=== PATIENT | male | born 1960 | race Caucasian/White ===

== ENCOUNTER 2016-09-20 15:47 | Emergency (ER) | payer OTHER ==
--- NOTE | 2016-09-20 15:57 | EDPHY ---
H & P Stated Complaint: r lumbar /sciatic and r leg pain and numbness for 1 month - Personal History Current Tetanus/Diphtheria Vaccine: Yes Tetanus Vaccine Date: 2006 - Medical/Surgical History Hx Asthma: No Hx Chronic Respiratory Disease: No Hx Diabetes: No Hx Cardiac Disease: No Hx Renal Disease: No Hx Cirrhosis: No Hx Alcoholism: No Hx HIV/AIDS: No Hx Splenectomy or Spleen Trauma: No Other PMH: HTN, Pelvic Fx, tib fx, chronic pain, NICK - Social History Smoking Status: Never smoked Time Seen by Provider: 09/20/16 15:57 Constitutional: Initial Vital Signs Temperature (C) 36.7 C 09/20/16 15:52 Heart Rate 106 H 09/20/16 15:52 Respiratory Rate 20 09/20/16 15:52 Blood Pressure 125/75 H 09/20/16 15:52 O2 Sat (%) 93 09/20/16 15:52 O2 Delivery Mode Room Air Allergies/Adverse Reactions: Penicillins Allergy (Intermediate, Verified 09/20/16 15:50) Hives Home Medications: Medication Instructions Recorded Cyclobenzaprine 10/22/15 Gabapentin 10/22/15 Testosterone IM 10/22/15 traMADOL 10/22/15 methylPREDNISolone [Medrol Dose 4 mg PO DAILY #1 each 09/20/16 Russell] Medical Decision Making - Diagnostics Imaging Results: Imaging Impressions Lumbar Spine MRI 09/20/16 16:12 Impression: There is a 4 x 7 x 9 mm synovial cyst seen along the medial portion of the right L4-L5 facet joint, as well as left lateral ligamentum flavum thickening, features resulting in a severe canal stenosis. There is also accompanying facet hypertrophy and some broad-based circumferential disk bulging at this level. Findings were discussed with Rowan Moses MD at 21:10, on 09/20/2016. ED Course/Re-evaluation: CHIEF COMPLAINT: Lower back pain, right leg numbness. HISTORY OF PRESENT ILLNESS: The patient is a 56-year-old male who presents with right lower back pain that began a month ago and has been worsening since then. Today when he woke up the pain was severe and his leg has been going numb. He denies weakness. The pain is worsened with movement. He had bilateral kidney ultrasounds today with his PCP Dr. Thapa that were negative. His creatinine was noted to be high. REVIEW OF SYSTEMS: A 10 point review of systems was performed and is negative with the exception of the elements mentioned in the history of present illness. PHYSICAL EXAM: HR, BP, O2 Sat, RR. Temp noted General Appearance: Alert, well hydrated, appropriate, and non-toxic appearing. Head: Atraumatic without scalp tenderness or obvious injury Eyes: Pupils equal, round, reactive to light and accommodation, EOMI, no trauma , no injection. Ears: Clear bilaterally, no perforation, normal landmarks Nose: Atraumatic, no rhinorrhea, clear. Throat: There is no erythema or exudates, no lesions, normal tonsils, mucus membranes moist. Neck: Supple, 2+ carotid upstroke, nontender, no lymphadenopathy. Respiratory: No retractions, no distress, no wheezes, and no accessory muscle use. Lungs are clear to auscultation bilaterally. Cardiovascular: Regular rate and rhythm, no murmurs, rubs, or gallops. Bilateral carotid, radial, dorsalis pedis, and posterior tibial pulses intact. Good capillary refill all extremities. Gastrointestinal: Abdomen is soft, nontender, non-distended, no masses, no rebound, no guarding, no peritoneal signs. Musculoskeletal: Normal active ROM of all extremities, atraumatic. Neurological: Alert, appropriate, and interactive. The patient has normal DTRs and non-focal cranial nerves, motor, sensory, and cerebellar exam. Skin: No rashes, good turgor, no nodules on palpation. Past medical history: Hypertension, chronic pain, NICK Past surgical history: Right tibial fracture repair, pelvic fracture repair. Family history: N/A. Social history: Here alone. DIAGNOSTICS/PROCEDURES/CRITICAL CARE TIME: Study: MRI of the: Lumbar spine. Indication: Neurologic Results: See Image Results section for official report. The study was read by the radiologist. I viewed the images myself on the PACS system. DIFFERENTIAL DIAGNOSIS: The differential diagnosis for the patient's back pain included but was not limited to musculo-skeletal pain, epidural abscess, herniated disk, spinal fracture, and intra-abdominal causes including urinary system. MEDICAL DECISION MAKIN-year-old male presents with right lower back pain and numbness in his right leg. The numbness ends skilled nursing down his right calf. These symptoms have been present for a month but worsened significantly this morning. He has a normal motor exam. He does have a large amount of hardware in his pelvis and lower back. I consulted with Dr. Mchugh who reports that an MRI will still be valuable. I have ordered a lumbar spine MRI without contrast. 2100: Patient signed out to Dr. Anders. Awaiting results of MRI. (Dirk Whitt) I assumed care of this patient at 9:00 p.m.. We are awaiting MRI results. MRI scan of the lumbar spine was obtained. I viewed the images independently on the PACS system. I discussed the results of the study with the radiologist. Impression: 4 x 7 x 9 mm synovial cyst along the medial portion of the right L4-L5 facet joint as well as left lateral ligamentum flavum thickening resulting in severe canal stenosis. Please see the full radiology report. I discussed the patient's MRI with Viv Kim, from Neurosurgery. Patient will have a urgent follow-up visit and Neurosurgery in either or Monday of this week. I discussed the results of the MRI with the patient as well as his strip catcher who is a nurse. Patient expressed concern to me about ongoing sinus tachycardia as well as hypertension. He has been seen by his primary care physician, Dr. Thapa, recently. Evaluation thus far has demonstrated a kidney stone of the right kidney on ultrasound as well as worsening renal insufficiency with a creatinine of 1.5. Patient is noted to be hypertensive at 146/117. He has a heart rate of 114. He is afebrile. CBC, Chem 7, TSH were ordered. Patient would prefer to be discharged after the labs were drawn with close follow-up tomorrow with Dr. Thapa. He was discharged with a Medrol Dosepak. He tells me he has tramadol at home and would prefer not to have narcotics. (Rowan Moses) Differential Diagnosis: After history was obtained and physical exam performed, the differential for back pain was considered including but not limited to muscular pain, herniated disc, structural lumbar spine compression, spinal stenosis, spine fracture, intra-abdominal causes, and urinary tract infection. (Rowan Moses) - Data Points Laboratory Results: 09/20/16 09/20/16 21:58 21:58 WBC Pending RBC Pending Hgb Pending Hct Pending MCV Pending MCH Pending MCHC Pending RDW Pending Plt Count Pending MPV Pending Neut % (Auto) Pending Lymph % (Auto) Pending [place] % (Auto) Pending Eos % (Auto) Pending Baso % (Auto) Pending Nucleat RBC Rel Count Pending Absolute Neuts (auto) Pending Absolute Lymphs (auto) Pending Absolute Monos (auto) Pending Absolute Eos (auto) Pending Absolute Basos (auto) Pending Absolute Nucleated RBC Pending Immature Gran % Pending Immature Gran # Pending Sodium Pending Potassium Pending Chloride Pending Carbon Dioxide Pending Anion Gap Pending BUN Pending Creatinine Pending Estimated GFR Pending Glucose Pending Calcium Pending TSH Pending Medications Given: Discontinued Medications Prednisone (Prednisone) 60 mg PO EDNOW ONE Stop: 09/20/16 16:13 Last Admin: 09/20/16 16:55 Dose: 60 mg Departure - Departure Disposition: Home, Routine, Self-Care Clinical Impression: Lumbar radiculopathy Lumbar pain Qualifiers: Chronicity: acute Back pain laterality: right Sciatica presence: with sciatica Sciatica laterality: sciatica of right side Qualified Code(s): M54.41 - Lumbago with sciatica, right side Condition: Good Instructions: Acute Low Back Pain (ED), Lumbar Radiculopathy (ED) Additional Instructions: Follow up with Dr. Kim, neurosurgery, this week. Your case has been discussed with her. You should be able to make an appointment on or Monday. Their office will be contacting you. If you do not hear from them sometime tomorrow, please call and make an appointment. Please take the Medrol Dosepak as directed. Please follow up with Dr. Thapa for reports regarding the laboratory evaluation performed this evening. Return for any serious worsening of condition, including increasing pain, weakness in the lower extremity, worsening numbness or tingling into the leg, urinary difficulties. Referrals: Rupert Thapa MD [Primary Care Provider] - As per Instructions Viv Kim DO [Doctor of Osteopathy] - As per Instructions (Call for an appointment this week.) Prescriptions: methylPREDNISolone [Medrol Dose Russell] 4 mg PO DAILY #1 each Report Scribed for: Dirk Whitt Report Scribed by: Linwood Schwab Date of Report: 09/20/16 Time of Report: 16:04
[2016-09-20] MEDS ORDERED: predniSONE 20 MG TAB PO ONE (16:12)
[2016-09-20] MEDS ORDERED: DILTIAZEM 25 MG/5 ML VIAL IVP ONE (17:30)
[2016-09-20 21:54] VITALS: BP 146/117; PULSE 111; RESP 20; TEMP 98.2; O2SAT 94
[2016-09-20 22:06] LABS: % IMMATURE GRANULYOCYTES 0.6 % (0.0-1.1); ABSOLUTE IMMATURE GRANULOCYTES 0.07 10^3/uL (0.00-0.10); ADD DIFF? NO; ADD MORPH? NO; ADD SCAN? NO; ATYPICAL LYMPHOCYTE FLAG 0 (0-99); FRAGMENT RBC FLAG 0 (0-99); HEMATOCRIT 53.5 % (40.0-51.0); LEFT SHIFT FLG 0 (0-99); LIPEMIA HEMOLYSIS FLAG 80 (0-99); MEAN CELL HEMOGLOBIN 28.6 pg (27.9-34.1); MEAN CELL HEMOGLOBIN CONCENTR. 33.6 g/dL (32.4-36.7); MEAN CELL VOLUME 84.9 fL (81.5-99.8); MEAN PLATELET VOLUME 10.3 fL (8.7-11.7); PLATELET CLUMPS FLAG 0 (0-99); PLATELET COUNT 242 10^3/uL (150-400); RED CELL DISTRIBUTION WIDTH 19.7 % (11.5-15.2)
[2016-09-20 22:19] LABS: ANION GAP 12 mEq/L (8-16); CALCIUM 9.7 mg/dL (8.5-10.4); CARBON DIOXIDE 22 mEq/l (22-31); CHLORIDE 105 mEq/L (97-110); CREATININE 1.6 mg/dL (0.7-1.3); GLOMERULAR FILTRATION RATE 45; GLUCOSE 114 mg/dL (70-100); SODIUM 139 mEq/L (134-144)
== END 2016-09-20 22:31 | disposition home or self-care (01) ==
DX: M54.16 Radiculopathy, lumbar region (principal); M54.41 Lumbago with sciatica, right side; I10 Essential (primary) hypertension

== ENCOUNTER → 2016-09-20 | Outpatient (CLI) | payer OTHER | LOC: CIMAGING 10:26 | PROVIDERS: ATTEND Internal Medicine | DX: R10.9 Unspecified abdominal pain (principal); R94.4 Abnormal results of kidney function studies | CPT/HCPCS: 76770-PO ==

== ENCOUNTER 2017-01-15 10:28 | Emergency (ER) | payer OTHER ==
[2017-01-15 10:39] VITALS: TEMP 97.7
--- NOTE | 2017-01-15 11:18 | EDPHY ---
H & P Time Seen by Provider: 01/15/17 11:15 HPI/ROS: HPI: Mr. Olivier Priec is a 56-year-old male who presents with Chief Complaint: Rash on right shoulder Location: right shoulder/upper back Quality: Rash Duration: 3 days Signs and Symptoms: Positive pruritus, no headache, no malaise, no photophobia , no paresthesia, no pain, no vision changes, no eye redness Timing: Sudden, worsening Severity: Moderate Context: Patient noted that he had some itchiness on his right shoulder upper back approximately 3 days ago; then noticed rash 2 days ago. also requesting some Silvadene cream. Modifying Factors: Takes Neurontin, Nucenta and Ultram Comment: ROS: Eyes: No blurred vision Respiratory: No shortness of breath, no cough Cardiovascular: No chest pain Gastrointestinal: No nausea, no vomiting no diarrhea Genitourinary: No dysuria Extremities: No myalgias Neurologic: No weakness, no numbness Skin: + rashes Hematologic: No bruising, no bleeding MEDICAL/SURGICAL HISTORY: Hypertension, pelvic fracture, tibial fracture with malunion, chronic pain, obstructive sleep apnea Social History: . Retired from [employer]. Smoking Status: Never smoked Physical Exam: CONSTITUTIONAL: Well-appearing adult white male, awake and alert, no obvious distress HEENT: Atraumatic and normocephalic, PERRL, EOMI. Tympanic membranes clear. . Oropharynx clear, no exudate and moist pink mucosa. Airway patent. No lymphadenopathy. No meningismus. Cardiovascular: Normal S1/S2, regular rate, regular rhythm, without murmur rub or gallop. PULMONARY/CHEST: Symmetrical and nontender. Clear to auscultation bilaterally Good air movement. No accessory muscle usage. ABDOMEN: Soft, nondistended, nontender, no rebound, no guarding, no peritoneal signs, no masses or organomegaly. No CVAT. EXTREMITIES: 2/2 pulses, no deformities, no clubbing, no cyanosis or edema. NEUROLOGICAL: no focal neuro deficits. GCS 15. SKIN: Warm and dry, macular papular rash in the T3 through T4 dermatomal distribution not passing over midline; no vesicles seen. no rash. Good capillary refill. Constitutional: Initial Vital Signs Temperature (C) 36.5 C 01/15/17 10:35 Heart Rate 95 08/27/17 10:35 Respiratory Rate 18 01/15/17 10:35 Blood Pressure 164/109 H 01/15/17 10:35 O2 Sat (%) 93 01/15/17 10:35 O2 Delivery Mode Room Air Allergies/Adverse Reactions: Penicillins Allergy (Intermediate, Verified 01/15/17 10:35) Hives Home Medications: Medication Instructions Recorded Cyclobenzaprine 10/22/15 Gabapentin 10/22/15 Testosterone IM 10/22/15 traMADOL 10/22/15 Acyclovir 800 mg PO 5XD #35 tab 01/15/17 Nucynta 01/15/17 Silver Sulfadiazine [Silvadene] 50 gm TP TID PRN #0 cream..g. 01/15/17 oxyCODONE/APAP 5/325 [Percocet 1 - 2 tab PO Q6H PRN #20 tab 01/15/17 5/325 (*)] Medical Decision Making ED Course/Re-evaluation: given oral medication No signs of herpes zoster ophthalmicus/herpes zoster oticus/cellulitis Differential Diagnosis: ED rash differential includes cellulitis, dermatitis, viral exanthem, shingles, eczema. Departure - Departure Disposition: Home, Routine, Self-Care Clinical Impression: Shingles rash Qualifiers: Herpes zoster complications: without complications Qualified Code(s): B02.9 - Zoster without complications Condition: Good Instructions: Shingles (ED) Additional Instructions: Wound check with primary care provider in 1 week to monitor for signs for secondary infection as well as pain control. Referrals: Rupert Thapa MD [Primary Care Provider] - 5-7 days, call for appt. Prescriptions: Acyclovir 800 mg PO 5XD #35 tab oxyCODONE/APAP 5/325 [Percocet 5/325 (*)] 1 - 2 tab PO Q6H PRN #20 tab PRN Reason: Pain, Severe Silver Sulfadiazine [Silvadene] 50 gm TP TID PRN #0 cream..g. PRN Reason: Rash
[2017-01-15] MEDS ORDERED: ACYCLOVIR 400 MG TAB PO ONE (11:20)
[2017-01-15] MEDS ORDERED: OXYCODONE/APAP 5/325 TAB PO ONE (11:20)
[2017-01-15 12:13] VITALS: BP 149/100; PULSE 90; RESP 16; O2SAT 95
== END 2017-01-15 12:14 | disposition home or self-care (01) ==
DX: B02.9 Zoster without complications (principal); I10 Essential (primary) hypertension

== ENCOUNTER → 2017-07-10 | Outpatient (CLI) | payer OTHER | LOC: BMCIMAGING 17:35 | PROVIDERS: ATTEND Family Medicine | DX: R09.89 Other specified symptoms and signs involving the circulatory and respiratory systems (principal) ==

== ENCOUNTER → 2018-03-08 | Outpatient (CLI) | payer OTHER | LOC: BMCIMAGING 16:01 | PROVIDERS: ATTEND Internal Medicine | DX: M15.4 Erosive (osteo)arthritis (principal) ==